=== PATIENT | female | born 2000 | race African-American/Black ===

== ENCOUNTER 2023-01-26 13:37 | Inpatient (IN) | payer MEDICAID, OTHER ==
[~2023-01-26] VITALS: Ht 167.6 cm; Wt 64.1 kg
[2023-01-26] MEDS ORDERED: HALOPERIDOL 5 MG TABLET PO ONE (15:15)
[2023-01-26] MEDS ORDERED: LORazepam 1 MG TABLET PO ONE (15:15)
[2023-01-26 16:02] LABS: AMPHET/METH SCREEN,URINE NEGATIVE (NEGATIVE); BARBITURATE SCREEN, URINE NEGATIVE (NEGATIVE); BENZODIAZEPINES SCREEN,URINE NEGATIVE (NEGATIVE); CANNABINOID SCREEN,URINE NEGATIVE (NEGATIVE); COCAINE SCREEN,URINE NEGATIVE (NEGATIVE); METHADONE SCREEN, URINE NEGATIVE (NEGATIVE); OPIATE SCREEN,URINE NEGATIVE (NEGATIVE); PHENCYCLIDINE SCREEN,URINE NEGATIVE (NEGATIVE)
[2023-01-26 16:19] LABS: BASOPHILS % (AUTO) 0.5 % (0.0-2.0); EOSINOPHILS % (AUTO) 0.3 % (1.0-6.0); HEMATOCRIT 36.3 % (36-46); HEMOGLOBIN 11.9 g/dL (12.0-16.0); LYMPHOCYTES # (AUTO) 1.2 K/uL (1.0-4.8); LYMPHOCYTES % (AUTO) 16.7 % (22.0-44.0); MEAN CORPUSCULAR HEMOGLOBIN 28.6 pg (26.0-34.0); MEAN CORPUSCULAR HGB CONC 32.9 G/dL (31.0-37.0); MEAN CORPUSCULAR VOLUME 87 fL (80-100); MONOCYTES # (AUTO) 0.4 K/uL (0.1-1.0); MONOCYTES % (AUTO) 5.6 % (2.0-9.0); NEUTROPHILS # (AUTO) 5.4 K/uL (1.8-7.7); NEUTROPHILS % (AUTO) 76.9 % (40.0-70.0); PLATELET COUNT (AUTO) 280 K/uL (150-450); RED BLOOD CELL COUNT(AUTO) 4.18 MIL/uL (4.00-5.20); RED CELL DISTRIBUTION WIDTH 15.5 % (11.5-14.5)
[2023-01-26 16:45] LABS: ANION GAP 10 mmol/L (8-16); CALCIUM, TOTAL 9.7 mg/dL (8.8-10.5); CARBON DIOXIDE 26 mmol/L (22-29); CHLORIDE 102 mmol/L (98-107); CREATININE 1.01 mg/dL (0.60-1.30); GLOMERULAR FILTR. RATE CALC > 60 mL/min (>60); GLUCOSE,RANDOM 99 mg/dL (70-110); POTASSIUM 3.6 mmol/L (3.5-5.1); SODIUM SERUM 138 mmol/L (136-145)
[2023-01-26 16:50] LABS: ALANINE AMINOTRANSFERASE 13 U/L (12-78); ALBUMIN 4.4 g/dL (3.4-5.0); ALKALINE PHOSPHATASE 58 U/L (46-116); ASPARTATE AMINOTRANSFERASE 15 U/L (15-37); BILIRUBIN,TOTAL 0.4 mg/dL (0.1-1.0); TOTAL PROTEIN, SERUM 8.1 g/dL (6.4-8.2)
[2023-01-26] MEDS ORDERED: DiphenhydrAMINE HCL 50 MG/ML VIAL IM ONE (17:15)
[2023-01-26] MEDS ORDERED: LORazepam 2 MG/ML VIAL IM ONE (17:15)
[2023-01-26] MEDS ORDERED: ACETAMINOPHEN 325 MG TABLET PO PRN (17:15)
[2023-01-26] MEDS ORDERED: HALOPERIDOL LACTATE 5 MG/ML VIAL IM ONE (17:15)
[2023-01-26 18:29] LABS: COVID AG,FIA SOURCE NASOPHARYNGEAL
[2023-01-26] MEDS ORDERED: HALOPERIDOL 5 MG TABLET PO PRN (23:00)
[2023-01-26 23:49] VITALS: BP 105/60
[2023-01-27 08:43] VITALS: BP 115/73
[2023-01-27] MEDS ORDERED: ALBUTEROL SULFATE HFA 90 MCG/PUFF 8 GM INHALER IH PRN (15:15)
[2023-01-27] MEDS ORDERED: LOPERAMIDE HCL 2 MG CAPSULE PO PRN (15:15)
[2023-01-27] MEDS ORDERED: GuaiFENesin/D-METHORPHAN [SUGAR-FREE] 200-20MG/10 ML SYRUP UDCUP PO PRN (15:15)
[2023-01-27] MEDS ORDERED: IBUPROFEN 400 MG TABLET PO PRN (15:15)
[2023-01-27] MEDS ORDERED: DOCUSATE SODIUM 100 MG CAPSULE PO PRN (15:15)
[2023-01-27] MEDS ORDERED: CloNIDine HCL 0.1 MG TABLET PO PRN (15:15)
[2023-01-27] MEDS ORDERED: PETROLATUM,WHITE 28 GM JELLY TP PRN (15:15)
[2023-01-27] MEDS ORDERED: MAG HYDROX/AL HYDROX/SIMETH ES 30 ML SUSPENSION UDCUP PO PRN (15:15)
[2023-01-27] MEDS ORDERED: ONDANSETRON HCL 4 MG TABLET PO PRN (15:15)
[2023-01-27] MEDS ORDERED: MAGNESIUM HYDROXIDE SUSPENSION 30 ML UDCUP PO PRN (15:15)
[2023-01-27] MEDS ORDERED: ACETAMINOPHEN 325 MG TABLET PO PRN (15:15)
[2023-01-27] MEDS ORDERED: NICOTINE 14 MG/24 HOUR PATCH TD PRN (15:15)
[2023-01-28 08:47] VITALS: BP 118/78
[2023-01-28] MEDS ORDERED: LORazepam 2 MG/ML VIAL ONE (12:01)
[2023-01-28] MEDS ORDERED: DiphenhydrAMINE HCL 50 MG/ML VIAL ONE (12:02)
[2023-01-28] MEDS ORDERED: HALOPERIDOL LACTATE 5 MG/ML VIAL ONE (12:02)
[2023-01-28] MEDS ORDERED: DiphenhydrAMINE HCL 50 MG/ML VIAL IM ONE ×2 (12:15)
[2023-01-28] MEDS ORDERED: RisperiDONE 1 MG TABLET PO ONE (12:15)
[2023-01-28] MEDS ORDERED: LORazepam 2 MG/ML VIAL IM ONE ×2 (12:15)
[2023-01-28] MEDS ORDERED: HALOPERIDOL LACTATE 5 MG/ML VIAL IM ONE ×2 (12:15)
[2023-01-28] MEDS: RisperiDONE 1 MG TABLET PO SCH (16:22)
[2023-01-28 20:43] VITALS: BP 100/63
[2023-01-29] MEDS: RisperiDONE 1 MG TABLET PO SCH ×2 (08:34→16:10)
[2023-01-29] MEDS: LORazepam 2 MG TABLET PO PRN (09:29)
[2023-01-30] MEDS: RisperiDONE 1 MG TABLET PO SCH ×2 (08:47→16:37)
[2023-01-30 20:22] VITALS: BP 98/65
[2023-01-30] MEDS: ZOLPIDEM TARTRATE 10 MG TABLET PO PRN (20:58)
[2023-01-31] MEDS: RisperiDONE 1 MG TABLET PO SCH ×2 (08:24→16:10)
[2023-01-31 08:37] VITALS: BP 101/62
[2023-01-31] MEDS: LORazepam 2 MG TABLET PO PRN (16:03)
[2023-01-31] MEDS: ZOLPIDEM TARTRATE 10 MG TABLET PO PRN (20:52)
[2023-01-31 21:08] VITALS: BP 110/70
[2023-02-01 08:12] VITALS: BP 103/67
[2023-02-01] MEDS: RisperiDONE 1 MG TABLET PO SCH (08:12)
[2023-02-01] MEDS ORDERED: RISP0.5T39 PO (15:29)
== END 2023-02-01 17:20 | disposition left against medical advice (07) | DRG 750 ==
LOC: EMS 13:40 → B3A 20:00
PROVIDERS: ADMIT Psychiatry & Neurology Child & Adolescent Psychiatry; ATTEND Psychiatry & Neurology Child & Adolescent Psychiatry
DX: F25.0 Schizoaffective disorder, bipolar type (principal); D64.9 Anemia, unspecified; Z20.822 Contact with and (suspected) exposure to COVID-19; G47.00 Insomnia, unspecified; R10.13 Epigastric pain; Z53.21 Procedure and treatment not carried out due to patient leaving prior to being seen by health care provider
CPT/HCPCS: 80053; 80307; 84702; 85025; 99291; G0480; J1200; J1630; J2060

== ENCOUNTER 2023-03-07 22:30 | Emergency (ER) | payer MEDICAID, OTHER ==
[~2023-03-07] VITALS: Ht 167.6 cm; Wt 60.0 kg
[~2023-03-07 22:30] MED LIST: RISP0.5T39 PO
[2023-03-07 22:36] VITALS: BP 107/60; PULSE 85; RESP 16; TEMP 98.3
== END 2023-03-07 23:33 | disposition left against medical advice (07) ==
LOC: EMS 22:30
DX: Z53.21 Procedure and treatment not carried out due to patient leaving prior to being seen by health care provider (principal)
CPT/HCPCS: 99281; Z7502